=== PATIENT | female | born 1960 | race Hispanic/Latino ===

== ENCOUNTER 2017-09-18 06:12 | Outpatient (CLI) | payer OTHER ==
[2017-09-18 06:54] LABS: Blood Urea Nitrogen 6 mg/dL (7-17)
--- NOTE | 2017-09-18 15:27 | Cat Scan Report ---
CT ABDOMEN PELVIS WITH AND WITHOUT CONTRAST: HISTORY: Benign hypertension. COMPARISON: none. TECHNIQUE: Helical CT in 1.25mm intervals before and after IV contrast. Sagittal and coronal reconstructions. FINDINGS: Lung bases: Trace bilateral pleural effusions. The visualized lung bases are well aerated with no evidence of parenchymal lung disease. Normal heart size. Liver: Normal. Biliary system: Normal. Pancreas: Normal. Spleen: Normal. Kidneys/ureters/bladder: Both kidneys are normal size, contour and position. There are 2 tiny cortical cysts in the superior right kidney. No evidence for renal mass, nephrolithiasis or hydronephrosis. CT urogram images demonstrate normal renal collecting system bilaterally. The ureters are normal course and caliber. Normal bladder. Adrenal glands: Normal. No evidence for adrenal mass or adenoma. Aorta: Normal. Intestines: Normal. Appendix: Normal. Pelvic viscera: Normal. Ascites: None. Adenopathy: None. Musculoskeletal: Normal. IMPRESSION: Trace bilateral pleural effusions. Tiny simple right renal cysts. Otherwise unremarkable exam of the abdomen and pelvis.
== END 2017-09-18 06:13 | disposition home or self-care (01) ==
LOC: CT 06:12
PROVIDERS: ATTEND Urology
DX: N28.1 Cyst of kidney, acquired (principal); J90 Pleural effusion, not elsewhere classified; I10 Essential (primary) hypertension
CPT/HCPCS: 36415; 74178; 82565; 84520; Q9967

== ENCOUNTER 2018-08-20 08:29 | Outpatient (CLI) | payer OTHER ==
--- NOTE | 2018-08-20 13:27 | Ultrasound Report ---
ULTRASOUND RENAL BILATERAL HISTORY: Calculus of kidney. TECHNIQUE: transabdominal ultrasound with color Doppler interrogation. FINDINGS: Scans of the kidneys show normal renal contours. There is normal central calyceal clustering and good preservation of the cortical thickness. A few tiny millimetric right renal cysts are noted. There is no evidence of mass or hydronephrosis. The views of the bladder and the region of the ureters appear normal. IMPRESSION: Unremarkable renal ultrasound.
== END 2018-08-20 08:30 | disposition home or self-care (01) ==
LOC: US 08:29
PROVIDERS: ATTEND Urology
DX: N20.0 Calculus of kidney (principal)
CPT/HCPCS: 76770

== ENCOUNTER 2019-06-24 07:08 | Outpatient (CLI) | payer OTHER ==
--- NOTE | 2019-06-24 08:31 | Ultrasound Report ---
Renal ultrasound. 06/24/2019. HISTORY: Renal mass. FINDINGS: Right kidney measures 9.3 cm. Cortex is 1.1 cm. Left kidney measures 9.8 cm. Cortex measures 1.7 cm. Cortical echogenicity is normal. Negative for mass or obstruction. The bladder contains a small amount of urine. IMPRESSION: Normal renal ultrasound. Signer Name: David Brown MD Signed: 06/24/2019 8:27 AM Workstation Name: [id number]
== END 2019-06-24 07:09 | disposition home or self-care (01) ==
LOC: US 07:08
PROVIDERS: ATTEND Urology
DX: N28.89 Other specified disorders of kidney and ureter (principal)
CPT/HCPCS: 76770